=== PATIENT | male | born 1950 | race Caucasian/White ===

== ENCOUNTER → 2022-10-25 08:26 | Outpatient (CLI) | payer MEDICARE, BC, SELFPAY ==
--- NOTE | ~2022-10-25 | CT_ITS ---
EXAMINATION: CT diagnostic chest w con DATE: 10/25/2022 08:56 INDICATION: Possible focal areas of bilateral diaphragmatic eventration versus pleural-based masses TECHNIQUE: Computed tomography (CT) of the chest was performed with 75 CC Omnipaque 350 intravenous c ontrast. Automated exposure control and iterative reconstruction technique were employed. Exam dose: 392.79 mGy-cm total exam DLP. COMPARISON: 10/18/2022 2 view chest FINDINGS: Small fat-containing bilateral foramen of [place] hernias cannot for the findings on the 10/18/2022 chest. Cholelithiasis. No gallbladder wall thickening. Normal morphology of the adrenal glands. Normal size and homogeneous enhancement of the thyroid gland. No hilar or mediastinal mass lesion or lymphadenopathy. No thoracic aortic aneurysm or dissection. Normal heart size. Coronary artery calcification. No pericardial or pleural effusion. No pulmonary infiltrate or consolidation or pulmonary mass lesion. Peripheral mild interlobular septal soft tissue thickening and honeycombing, possibly due to mild usu al interstitial pneumonia interstitial fibrosis Prominent levoscoliosis and degenerative change of the thoracic spine. 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 No suspicious osteolytic or osteoblastic lesions are noted. IMPRESSION: Bilateral small foramen of [place] fat-containing diaphragmatic hernias, which account for the chest radiograph finding noted on 10/18/2022 Cholelithiasis Reviewed, dictated and finalized at [facility]. Reviewed, dictated and finalized at [facility].
[2022-10-25 08:45] LABS: Estimated Glomerular Filt Rate 55
== END ==
PROVIDERS: PCP Physician Assistant Medical; Visit Provider Physician Assistant Medical
DX: R06.00 Dyspnea, unspecified (principal); R93.89 Abnormal findings on diagnostic imaging of other specified body structures; K80.20 Calculus of gallbladder without cholecystitis without obstruction
CPT/HCPCS: 71260; Q9967